=== PATIENT | female | born 1940 | race Hispanic/Latino ===

== ENCOUNTER 2023-10-12 07:03 | Inpatient (IN) | payer SELFPAY ==
[2023-10-12] MEDS ORDERED: methylPREDNISolone Sod Succ/PF 125 MG/2 ML VIAL ONE (07:25)
[2023-10-12] MEDS ORDERED: Magnesium 2 GM/50 ML BAG (IN WATER) ONE (07:26)
[2023-10-12] MEDS ORDERED: Albuterol 2.5 MG (0.5 mL) NEB ONE (07:28)
[2023-10-12 07:31] LABS: Analyzer IN Cardio ER; Base Excess -5.7 mEq/L (-2.0 to +3.0); Calcium, Ionized (venous) 1.16 mmol/L (1.16-1.32); Chloride (VBG) 101 mmol/L (98-106); Hematocrit-VBG 39 % (36.0-47.0); Hemoglobin (Hb) 13.4 g/dL (11.7-16.1); Potassium (VBG) 4.57 mmol/L (3.70-5.30); Sodium 141 mmol/L (133-146)
[2023-10-12 07:37] LABS: #Basophils 0.1 thou/uL (0.0-0.2); #Eosinphils 0.3 thou/uL (0.0-0.7); #Monocytes 0.3 thou/uL (0.11-0.59); #Neutrophils 3.9 thou/uL (1.40-6.50); %Eosinophils 3.9 % (0.0-10.0); %Lymphocytes 35.3 % (21.0-51.0); %Monocytes 4.2 % (0.0-10.0); %Neutrophils 54.1 % (42.0-75.0); Hematocrit 41.9 % (36.0-47.0); Hemoglobin 12.9 g/dL (12.0-16.0); Mean Corpuscular HGB CONC 30.8 g/dL (32.0-36.0); Mean Corpuscular Volume 97.4 fl (78.0-98.0); Mean Platelet Volume 11.5 fL (7.4-10.4); Platelet Count 282 10x3/uL (130-400); RBC Distribution Width 13.4 % (11.5-14.5); White Blood Cell (WBC) Count 7.1 10x3/uL (4.8-10.8)
[2023-10-12 07:37] LABS: pH (venous) 7.133 (7.32-7.43)
[2023-10-12 07:59] LABS: ALT (SGPT) 13 U/L (8-55); AST (SGOT) 20 U/L (5-34); Alkaline Phosphatase 98 U/L (40-110); Anion Gap 17 mmol/L (10-20); BUN (Urea Nitrogen) 48 mg/dL (9.8-20.1); Bilirubin, Total 0.4 mg/dL (0.2-1.2); Calc. Creatinine Clearance 0 mL/min (70-130); Calcium 9.1 mg/dL (7.8-10.44); Carbon Dioxide 23 mmol/L (23-31); Chloride 101 mmol/L (98-107); Estimated GFR 20; Globulin 4.1 g/dL (2.4-3.5); Glucose 317 mg/dL (83-110); Potassium 4.3 mmol/L (3.5-5.1); Protein, Total 8.1 g/dL (5.8-8.1); Sodium 137 mmol/L (136-145)
[2023-10-12 08:09] LABS: Troponin I Less than 0.010 ng/mL (< 0.028)
[2023-10-12 08:15] LABS: INR-International Normal Ratio 1.3; Prothrombin Time 15.8 sec (12.0-14.7)
[2023-10-12 08:16] LABS: PTT 31.7 sec (22.9-36.1)
[2023-10-12] MEDS ORDERED: Nitroglycerin 2% Ointment 1 INCH/1 GM Packet ONE (09:08)
[2023-10-12] MEDS ORDERED: Furosemide 40 MG (4 mL) VIAL ONE (09:09)
[2023-10-12] MEDS ORDERED: Aspirin Chewable 81 MG TAB ONE (09:09)
[2023-10-12] MEDS ORDERED: hydrALAZINE 20 MG/ML VIAL SLOW IVP PRN (09:23)
[2023-10-12] MEDS ORDERED: Senokot S 8.6-50 MG TAB PO PRN (09:23)
[2023-10-12] MEDS ORDERED: Labetalol HCl 100 MG/20 ML VIAL SLOW IVP PRN (09:23)
[2023-10-12] MEDS ORDERED: Sodium Chloride 0.65% Nasal 44 ML BOT EA NARE PRN (09:23)
[2023-10-12] MEDS ORDERED: Ondansetron PF 4 MG/2 ML Vial IVP PRN (09:23)
[2023-10-12] MEDS ORDERED: diphenhydrAMINE 50 MG/ML VIAL IVP PRN (09:23)
[2023-10-12] MEDS ORDERED: diphenhydrAMINE 25 MG CAP PO PRN (09:23)
[2023-10-12] MEDS ORDERED: Calcium Carbonate 500 MG ChewTAB PO PRN (09:23)
[2023-10-12] MEDS ORDERED: Artificial Tear Sol 15 ML BOT EA EYE PRN (09:23)
[2023-10-12] MEDS ORDERED: Bisacodyl 5 MG TAB PO PRN (09:23)
[2023-10-12] MEDS ORDERED: Benzonatate 100 MG CAP PO PRN (09:23)
[2023-10-12] MEDS ORDERED: Nitroglycerin 0.4 MG TAB (25 Tab Bottle) SL PRN (09:23)
[2023-10-12] MEDS ORDERED: Acetaminophen 325 MG TAB PO PRN (09:23)
[2023-10-12] MEDS ORDERED: Acetaminophen 650 MG Suppository PR PRN (09:23)
[2023-10-12] MEDS ORDERED: Moisturizing Cream (Eucerin) 113 GM JAR TOP PRN (09:23)
[2023-10-12] MEDS ORDERED: Loratadine 10 MG TAB PO PRN (09:23)
[2023-10-12] MEDS ORDERED: Ondansetron ODT 4 MG TAB PO PRN (09:23)
[2023-10-12 09:25] LABS: SARS-CoV-2 NAA Rapid Test DETECTED (NotDetected)
[2023-10-12] MEDS ORDERED: Dextrose 5% in Water 1,000 ML IV PRN (09:28)
[2023-10-12] MEDS ORDERED: Dextrose 50% Abboject 50 ML SYRINGE SLOW IVP PRN (09:28)
[2023-10-12] MEDS ORDERED: Glucagon 1 MG/ML KIT IM PRN (09:28)
[2023-10-12] MEDS ORDERED: Empagliflozin 10 MG TAB PO SCH (09:32)
[2023-10-12] MEDS ORDERED: Albuterol 200 PUFF (6.7GM INHALER) INH PRN (10:06)
[2023-10-12 11:16] LABS: Free T4 (Free Thyroxine) 1.31 ng/dL (0.70-1.48); Thyroid Stimulating Hormone 6.3278 uIU/mL (0.35-4.94)
[2023-10-12 11:17] LABS: Lactic Acid 1.6 mmol/L (0.5-2.2)
[2023-10-12 11:19] LABS: Hemoglobin A1c 10.5 % (4.0-6.0)
[2023-10-12 11:30] LABS: Critical Call Chem Troponin I NUR.LM12@1129; Troponin I 0.217 ng/mL (< 0.028)
[2023-10-12 11:31] LABS: ALT (SGPT) 14 U/L (8-55); AST (SGOT) 22 U/L (5-34); Albumin 3.5 g/dL (3.4-4.8); Alkaline Phosphatase 82 U/L (40-110); Bilirubin, Direct 0.1 mg/dL (0.1-0.3); Bilirubin, Total 0.3 mg/dL (0.2-1.2); CRP (Inflammatory) 0.76 mg/dL (= or < 0.5); Magnesium 2.8 mg/dL (1.6-2.6); Phosphorus 4.5 mg/dL (2.3-4.7); Protein, Total 7.3 g/dL (5.8-8.1)
[2023-10-12] MEDS ORDERED: Heparin 10,000 UNITS/ 10 ML VIAL SLOW IVP SCH (12:00)
[2023-10-12] MEDS: Empagliflozin 10 MG TAB PO SCH (13:09)
[2023-10-12] MEDS ORDERED: Heparin 25,000 units/D5W 500 ML ONE (13:12)
[2023-10-12] MEDS: Heparin 25,000 units/D5W 500 ML IVPB SCH (13:21)
[2023-10-12 13:53] LABS: Hematocrit 35.2 % (36.0-47.0); Hemoglobin 11.4 g/dL (12.0-16.0); Platelet Count 226 10x3/uL (130-400)
[2023-10-12 14:21] LABS: Critical Call Chem Troponin I PHA.AAO@1421; Troponin I 0.452 ng/mL (< 0.028)
[2023-10-12 14:38] VITALS: BMI 27.3
[2023-10-12] MEDS: Pantoprazole 40 MG VIAL IVP SCH (15:14)
[2023-10-12] MEDS: REMDESIVIR 200 MG in Sodium Chloride 0.9% 250 ML 210 ML IV SCH (15:14)
[2023-10-12] MEDS: Dexamethasone 10 MG/ML VIAL SLOW IVP SCH (15:14)
[2023-10-12] MEDS: Furosemide 100 MG (10 mL) VIAL SLOW IVP SCH (15:14)
[2023-10-12 15:45] LABS: Bacteria/HPF 2+ HPF (None Seen); Bilirubin Negative (Negative); Blood, Urine Negative (Negative); Clarity Clear (Clear); Glucose, Urine (Dipstick) 500 mg/dL (Negative); Ketone, Urine Negative (Negative); Leukocyte Negative Leu/uL (Negative); Nitrite 2+ (Negative); Protein, Urine (Dipstick) Negative (Neg-Trace); RBC/HPF 0-3 HPF (0-3); Specific Gravity, Urine 1.007 (1.002-1.036); Squamous Epithelial None Seen HPF (0-3); Urobilinogen Normal mg/dL (Less than 2); WBC/HPF 0-3 HPF (0-3)
[2023-10-12 16:28] LABS: Creatinine, Urine Less than 20.00 mg/dL (47-110); Protein, Urine Random Quant Less than 10 mg/dL (1-14)
[2023-10-12] MEDS: HumaLOG 300 UNITS/3 ML VIAL SC PRN ×2 (16:46→22:26)
[2023-10-12 20:28] LABS: PTT Greater than 250.0 sec (22.9-36.1)
[2023-10-12 20:50] LABS: Troponin I 0.554 ng/mL (< 0.028)
[2023-10-12] MEDS ORDERED: Famotidine/PF 20 mg/2ml Vial SLOW IVP SCH (21:00)
[2023-10-12] MEDS ORDERED: Famotidine 20 MG TAB PO SCH (21:00)
[2023-10-12] MEDS ORDERED: Enoxaparin 60 MG (0.6 mL) SYRINGE SC SCH (21:00)
[2023-10-12] MEDS: Amiodarone 200 MG TAB PO SCH (22:02)
[2023-10-13 02:13] LABS: #Monocytes 0.1 thou/uL (0.11-0.59); #Neutrophils 9.1 thou/uL (1.40-6.50); %Basophils 0.1 % (0.0-1.0); %Lymphocytes 4.8 % (21.0-51.0); %Monocytes 1.2 % (0.0-10.0); %Neutrophils 93.4 % (42.0-75.0); Hematocrit 32.2 % (36.0-47.0); Hemoglobin 10.7 g/dL (12.0-16.0); Mean Corpuscular HGB CONC 33.2 g/dL (32.0-36.0); Mean Corpuscular Hemoglobin 30.5 pg (27.0-31.0); Mean Platelet Volume 11.2 fL (7.4-10.4); Platelet Count 216 10x3/uL (130-400); RBC Distribution Width 13.4 % (11.5-14.5); Red Blood Cell (RBC) Count 3.51 mill/uL (4.20-5.40); White Blood Cell (WBC) Count 9.8 10x3/uL (4.8-10.8)
[2023-10-13 02:22] LABS: Mean Corpuscular Volume 91.7 fl (78.0-98.0)
[2023-10-13 02:54] LABS: Critical Call Chem Troponin I REHAB@0253; Troponin I 0.486 ng/mL (< 0.028)
[2023-10-13 03:05] LABS: ALT (SGPT) 13 U/L (8-55); ALT (SGPT) 14 U/L (8-55); AST (SGOT) 20 U/L (5-34); Albumin 3.1 g/dL (3.4-4.8); Albumin 3.2 g/dL (3.4-4.8); Alkaline Phosphatase 63 U/L (40-110); Anion Gap 17 mmol/L (10-20); BUN (Urea Nitrogen) 55 mg/dL (9.8-20.1); Bilirubin, Direct 0.1 mg/dL (0.1-0.3); Bilirubin, Total 0.2 mg/dL (0.2-1.2); Bilirubin, Total 0.3 mg/dL (0.2-1.2); Calc. Creatinine Clearance 17 mL/min (70-130); Calcium 8.7 mg/dL (7.8-10.44); Carbon Dioxide 20 mmol/L (23-31); Chloride 101 mmol/L (98-107); Estimated GFR 18; Globulin 3.7 g/dL (2.4-3.5); Glucose 280 mg/dL (83-110); Potassium 4.1 mmol/L (3.5-5.1); Protein, Total 6.9 g/dL (5.8-8.1); Sodium 134 mmol/L (136-145)
[2023-10-13] MEDS ORDERED: Levothyroxine Sodium 100 MCG TAB PO SCH (06:00)
[2023-10-13 06:55] LABS: PTT 123.4 sec (22.9-36.1)
[2023-10-13] MEDS: Levothyroxine Sodium 112 MCG TAB PO SCH (07:38)
[2023-10-13 09:15] LABS: Critical Call Chem Troponin I 2DECREASING; Troponin I 0.348 ng/mL (< 0.028)
[2023-10-13] MEDS: Zinc Sulfate 220 MG CAP PO SCH (09:44)
[2023-10-13] MEDS: Aspirin Chewable 81 MG TAB PO SCH (09:44)
[2023-10-13] MEDS: Ascorbic Acid 500 mg Chewable Tablet PO SCH (09:45)
[2023-10-13] MEDS: Cholecalciferol (Vitamin D3) 400 UNITS TAB PO SCH (09:45)
[2023-10-13] MEDS: Empagliflozin 10 MG TAB PO SCH (09:45)
[2023-10-13] MEDS: Pantoprazole 40 MG VIAL IVP SCH (09:45)
[2023-10-13] MEDS: FLU VACC QS2023(65UP)/MF59C/PF 60 MCG/0.5 ML SYRINGE IM ONE (09:46)
[2023-10-13] MEDS: Furosemide 100 MG (10 mL) VIAL SLOW IVP SCH (10:01)
[2023-10-13] MEDS: REMDESIVIR 100 MG in Sodium Chloride 0.9% 250 ML 230 ML IV SCH (10:02)
[2023-10-13] MEDS: Apixaban 2.5 MG TAB PO SCH (13:40)
[2023-10-13 14:25] LABS: Troponin I 0.187 ng/mL (< 0.028)
[2023-10-13] MEDS ORDERED: Apixaban 2.5 MG TAB PO SCH (15:00)
[2023-10-13] MEDS: Memantine 10 MG TAB PO SCH (21:06)
[2023-10-13] MEDS: Pioglitazone HCl 15 MG TAB PO SCH (21:06)
[2023-10-13] MEDS: Insulin Glargine 30 UNITS/0.3 ML VIAL SC SCH (21:06)
[2023-10-14 06:44] LABS: #Monocytes 0.5 thou/uL (0.11-0.59); #Neutrophils 12.8 thou/uL (1.40-6.50); %Basophils 0.1 % (0.0-1.0); %Lymphocytes 3.9 % (21.0-51.0); %Monocytes 3.5 % (0.0-10.0); %Neutrophils 91.8 % (42.0-75.0); Hemoglobin 10.6 g/dL (12.0-16.0); Mean Corpuscular HGB CONC 33.1 g/dL (32.0-36.0); Mean Corpuscular Hemoglobin 30.5 pg (27.0-31.0); Mean Corpuscular Volume 92.2 fl (78.0-98.0); Mean Platelet Volume 11.4 fL (7.4-10.4); Platelet Count 199 10x3/uL (130-400); RBC Distribution Width 13.6 % (11.5-14.5); Red Blood Cell (RBC) Count 3.47 mill/uL (4.20-5.40); White Blood Cell (WBC) Count 13.9 10x3/uL (4.8-10.8)
[2023-10-14 07:09] LABS: ALT (SGPT) 9 U/L (8-55); AST (SGOT) 15 U/L (5-34); Albumin 3.3 g/dL (3.4-4.8); Alkaline Phosphatase 66 U/L (40-110); Anion Gap 14 mmol/L (10-20); BUN (Urea Nitrogen) 63 mg/dL (9.8-20.1); Bilirubin, Direct 0.1 mg/dL (0.1-0.3); Bilirubin, Total 0.3 mg/dL (0.2-1.2); Calc. Creatinine Clearance 20 mL/min (70-130); Calcium 8.5 mg/dL (7.8-10.44); Carbon Dioxide 25 mmol/L (23-31); Chloride 99 mmol/L (98-107); Estimated GFR 21; Glucose 237 mg/dL (83-110); Potassium 3.8 mmol/L (3.5-5.1); Protein, Total 6.7 g/dL (5.8-8.1); Sodium 134 mmol/L (136-145)
[2023-10-14] MEDS: Apixaban 2.5 MG TAB PO SCH (17:33)
[2023-10-14] MEDS: Insulin Glargine 30 UNITS/0.3 ML VIAL SC SCH (21:28)
[2023-10-15 07:08] LABS: ALT (SGPT) 12 U/L (8-55); AST (SGOT) 14 U/L (5-34); Albumin 3.1 g/dL (3.4-4.8); Alkaline Phosphatase 58 U/L (40-110); Anion Gap 11 mmol/L (10-20); BUN (Urea Nitrogen) 58 mg/dL (9.8-20.1); Bilirubin, Direct 0.2 mg/dL (0.1-0.3); Bilirubin, Total 0.3 mg/dL (0.2-1.2); Calc. Creatinine Clearance 22 mL/min (70-130); Calcium 8.5 mg/dL (7.8-10.44); Carbon Dioxide 28 mmol/L (23-31); Chloride 103 mmol/L (98-107); Estimated GFR 26; Glucose 164 mg/dL (83-110); Potassium 3.9 mmol/L (3.5-5.1); Protein, Total 6.4 g/dL (5.8-8.1); Sodium 138 mmol/L (136-145)
[2023-10-16 05:56] LABS: #Monocytes 0.5 thou/uL (0.11-0.59); #Neutrophils 7.7 thou/uL (1.40-6.50); %Lymphocytes 4.8 % (21.0-51.0); %Monocytes 5.2 % (0.0-10.0); %Neutrophils 89.2 % (42.0-75.0); Hemoglobin 10.4 g/dL (12.0-16.0); Mean Corpuscular HGB CONC 32.5 g/dL (32.0-36.0); Mean Corpuscular Hemoglobin 30.2 pg (27.0-31.0); Mean Platelet Volume 11.9 fL (7.4-10.4); Platelet Count 177 10x3/uL (130-400); RBC Distribution Width 13.4 % (11.5-14.5); Red Blood Cell (RBC) Count 3.44 mill/uL (4.20-5.40); White Blood Cell (WBC) Count 8.7 10x3/uL (4.8-10.8)
[2023-10-16 06:26] LABS: ALT (SGPT) 12 U/L (8-55); AST (SGOT) 16 U/L (5-34); Albumin 3.2 g/dL (3.4-4.8); Alkaline Phosphatase 60 U/L (40-110); Anion Gap 12 mmol/L (10-20); BUN (Urea Nitrogen) 52 mg/dL (9.8-20.1); Bilirubin, Direct 0.1 mg/dL (0.1-0.3); Bilirubin, Total 0.3 mg/dL (0.2-1.2); Calc. Creatinine Clearance 26 mL/min (70-130); Calcium 8.2 mg/dL (7.8-10.44); Carbon Dioxide 24 mmol/L (23-31); Chloride 107 mmol/L (98-107); Estimated GFR 31; Glucose 95 mg/dL (83-110); Potassium 3.9 mmol/L (3.5-5.1); Protein, Total 6.3 g/dL (5.8-8.1); Sodium 139 mmol/L (136-145)
[2023-10-16] MEDS: Insulin Glargine 30 UNITS/0.3 ML VIAL SC SCH (08:50)
[2023-10-16 17:12] VITALS: BP 166/70; TEMP 97.7
[2023-10-29] MEDS ORDERED: Amiodarone 200 MG TAB PO SCH (09:00)
== END 2023-10-16 17:30 | disposition home or self-care (01) | DRG 177 ==
LOC: ERS 07:03 → EDBD 07:03 → ERHOLD 09:21 → IMCU/EMU 13:54 → 2NO 10-14 13:02
PROVIDERS: ADMIT Family Medicine; ATTEND Internal Medicine
PROC: XW033E5 Introduction of Remdesivir Anti-infective into Peripheral Vein, Percutaneous Approach, New Technology Group 5 (ICD-10-PCS; principal; 2023-10-12)
PROC: 5A09357 Assistance with Respiratory Ventilation, Less than 24 Consecutive Hours, Continuous Positive Airway Pressure (ICD-10-PCS; 2023-10-12)
DX: U07.1 COVID-19 (principal); I21.A1 Myocardial infarction type 2; I50.33 Acute on chronic diastolic (congestive) heart failure; J96.01 Acute respiratory failure with hypoxia; J12.82 Pneumonia due to coronavirus disease 2019; J96.02 Acute respiratory failure with hypercapnia; I13.0 Hypertensive heart and chronic kidney disease with heart failure and stage 1 through stage 4 chronic kidney disease, or unspecified chronic kidney disease; N17.9 Acute kidney failure, unspecified; E11.9 Type 2 diabetes mellitus without complications; E03.9 Hypothyroidism, unspecified; Z96.649 Presence of unspecified artificial hip joint; I48.0 Paroxysmal atrial fibrillation; N18.9 Chronic kidney disease, unspecified; Z79.4 Long term (current) use of insulin; Z79.899 Other long term (current) drug therapy
CPT/HCPCS: 36415; 36416; 71045; 76770; 80048; 80053; 80076; 81001; 82570; 82805; 83036; 83605; 83735; 83880; 84100; 84156; 84439; 84443; 84481; 84484; 85025; 85610; 85730; 86140; 87040; 90471; 90694; 93005; 94644; 94660; 94760; 96374; 96375; C9113; G0008; J0248; J1100; J1644; J1815; J1940; J2930; J3475; J7050; J7611

== ENCOUNTER 2023-11-10 02:50 | Inpatient (IN) | payer MEDICAID, SELFPAY ==
[2023-11-10] MEDS ORDERED: Dexamethasone 10 MG/ML VIAL ONE (02:55)
[2023-11-10] MEDS ORDERED: Magnesium 2 GM/50 ML BAG (IN WATER) ONE (02:56)
[2023-11-10] MEDS ORDERED: Ipratropium/Albuterol 3 ML NEB ONE (03:00)
[2023-11-10 03:08] LABS: Actual Bicarbonate (HCO3a) 19.4 mEq/L (22-28); Analyzer IN Cardio ER; Base Excess (BEa) -7.5 mEq/L (-2.0 to +3.0); CO2 Tension 44.5 mmHg (35.0-45.0); Calcium, Ionized (arterial) 1.19 mmol/L (1.12-1.30); Carboxyhemoglobin (COHb) 0.3 gm% (0.0-3.0); Hematocrit-ABG 35 % (36.0-47.0); Hemoglobin (Hb) 11.8 g/dL (12.0-16.0); O2 Tension (PaO2), arterial 200.3 mmHg (> 60.0); Potassium - ABG Lab 4.23 mmol/L (3.70-5.30); pH, Arterial 7.257 (7.35-7.45)
[2023-11-10 03:09] LABS: Puncture Site RRA
[2023-11-10 03:14] LABS: ALV-art Gradient 457.075 mmHg (0-20)
[2023-11-10 03:16] LABS: #Basophils 0.1 thou/uL (0.0-0.2); #Eosinphils 0.5 thou/uL (0.0-0.7); #Monocytes 0.8 thou/uL (0.11-0.59); #Neutrophils 4.7 thou/uL (1.40-6.50); %Basophils 0.9 % (0.0-1.0); %Eosinophils 5.4 % (0.0-10.0); %Lymphocytes 32.7 % (21.0-51.0); %Monocytes 8.6 % (0.0-10.0); %Neutrophils 51.2 % (42.0-75.0); Hematocrit 36.6 % (36.0-47.0); Hemoglobin 11.4 g/dL (12.0-16.0); Mean Corpuscular HGB CONC 31.1 g/dL (32.0-36.0); Mean Corpuscular Hemoglobin 30.2 pg (27.0-31.0); Mean Corpuscular Volume 96.8 fl (78.0-98.0); Platelet Count 336 10x3/uL (130-400); Red Blood Cell (RBC) Count 3.78 mill/uL (4.20-5.40); White Blood Cell (WBC) Count 9.1 10x3/uL (4.8-10.8)
[2023-11-10 03:30] LABS: INR-International Normal Ratio 1.1; PTT 32.5 sec (22.9-36.1); Prothrombin Time 14.7 sec (12.0-14.7)
[2023-11-10 03:35] LABS: ALT (SGPT) 30 U/L (8-55); AST (SGOT) 44 U/L (5-34); Alkaline Phosphatase 145 U/L (40-110); Anion Gap 17 mmol/L (10-20); BUN (Urea Nitrogen) 51 mg/dL (9.8-20.1); Bilirubin, Total 0.5 mg/dL (0.2-1.2); Calc. Creatinine Clearance 0 mL/min (70-130); Calcium 8.9 mg/dL (7.8-10.44); Carbon Dioxide 21 mmol/L (23-31); Chloride 104 mmol/L (98-107); Estimated GFR 21; Globulin 3.4 g/dL (2.4-3.5); Glucose 291 mg/dL (83-110); Magnesium 2.5 mg/dL (1.6-2.6); Potassium 4.6 mmol/L (3.5-5.1); Protein, Total 7.4 g/dL (5.8-8.1); Sodium 137 mmol/L (136-145)
[2023-11-10 03:38] LABS: Troponin I Less than 0.010 ng/mL (< 0.028)
[2023-11-10] MEDS ORDERED: cefTRIAXone (ROCEPHIN) 1 GM VIAL ONE (04:18)
[2023-11-10] MEDS ORDERED: Furosemide 40 MG (4 mL) VIAL ONE (04:18)
[2023-11-10] MEDS ORDERED: Sodium Chloride 0.9% 100 ML ONE ×2 (04:18→11:59)
[2023-11-10] MEDS ORDERED: Ondansetron ODT 4 MG TAB SL PRN (04:30)
[2023-11-10] MEDS ORDERED: Ondansetron PF 4 MG/2 ML Vial IVP PRN (04:30)
[2023-11-10] MEDS ORDERED: Glucagon 1 MG/ML KIT IM PRN (05:36)
[2023-11-10] MEDS ORDERED: Dextrose 50% Abboject 50 ML SYRINGE SLOW IVP PRN (05:36)
[2023-11-10] MEDS ORDERED: Dextrose 5% in Water 1,000 ML IV PRN (05:36)
[2023-11-10 06:14] LABS: Lactic Acid 1.5 mmol/L (0.5-2.2)
[2023-11-10 06:33] LABS: Troponin I 0.073 ng/mL (< 0.028)
[2023-11-10 07:37] VITALS: BMI 28.7
[2023-11-10] MEDS ORDERED: Azithromycin 500 MG VIAL ONE (07:48)
[2023-11-10] MEDS: Furosemide 20 MG (2 mL) VIAL SLOW IVP SCH (07:52)
[2023-11-10] MEDS: Azithromycin 500 MG in Sodium Chloride 0.9% 250 ML 250 ML IVPB SCH (07:53)
[2023-11-10 09:54] LABS: Troponin I 0.096 ng/mL (< 0.028)
[2023-11-10] MEDS: Cefepime 1 GM in Sodium Chloride 0.9% 100 ML IVPB SCH (11:55)
[2023-11-10] MEDS: Enoxaparin 30 MG (0.3 mL) SYRINGE SC SCH (11:55)
[2023-11-10] MEDS ORDERED: Enoxaparin 30 MG (0.3 mL) SYRINGE ONE (11:59)
[2023-11-10] MEDS ORDERED: Cefepime 1 GM VIAL ONE (11:59)
[2023-11-10] MEDS ORDERED: Albuterol 200 PUFF (6.7GM INHALER) INH PRN (12:50)
[2023-11-10 13:13] LABS: Influenza A by NAA Not Detected (NotDetected); Influenza B by NAA Not Detected (NotDetected); SARS-CoV-2 NAA Rapid Test Not Detected (NotDetected)
[2023-11-10] MEDS ORDERED: Furosemide 20 MG (2 mL) VIAL ONE (13:25)
[2023-11-10] MEDS ORDERED: Insulin Regular 300 UNITS/3 ML VIAL ONE (13:40)
[2023-11-10] MEDS ORDERED: HumaLOG 300 UNITS/3 ML VIAL ONE (13:42)
[2023-11-10] MEDS: HumaLOG 300 UNITS/3 ML VIAL SC PRN (13:45)
[2023-11-10] MEDS: Carvedilol 3.125 MG TAB PO SCH (23:08)
[2023-11-10] MEDS: Memantine 10 MG TAB PO SCH (23:10)
[2023-11-10] MEDS: Apixaban 2.5 MG TAB PO SCH (23:10)
[2023-11-10] MEDS: Pioglitazone HCl 15 MG TAB PO SCH (23:11)
[2023-11-11] MEDS: guaiFENesin ER 600 MG TAB PO SCH ×2 (02:17→21:58)
[2023-11-11 04:47] LABS: Anion Gap 14 mmol/L (10-20); BUN (Urea Nitrogen) 53 mg/dL (9.8-20.1); Calc. Creatinine Clearance 24 mL/min (70-130); Calcium 8.3 mg/dL (7.8-10.44); Carbon Dioxide 24 mmol/L (23-31); Chloride 103 mmol/L (98-107); Estimated GFR 27; Glucose 253 mg/dL (83-110); Potassium 4.4 mmol/L (3.5-5.1); Sodium 137 mmol/L (136-145)
[2023-11-11] MEDS: Levothyroxine Sodium 100 MCG TAB PO SCH (06:21)
[2023-11-11] MEDS: HumaLOG 300 UNITS/3 ML VIAL SC PRN (06:21)
[2023-11-11 08:35] LABS: #Monocytes 0.7 thou/uL (0.11-0.59); #Neutrophils 6.7 thou/uL (1.40-6.50); %Basophils 0.1 % (0.0-1.0); %Lymphocytes 8.5 % (21.0-51.0); %Monocytes 8.3 % (0.0-10.0); %Neutrophils 82.6 % (42.0-75.0); Hemoglobin 8.6 g/dL (12.0-16.0); Mean Corpuscular HGB CONC 31.9 g/dL (32.0-36.0); Mean Corpuscular Hemoglobin 30.4 pg (27.0-31.0); Mean Corpuscular Volume 95.4 fl (78.0-98.0); Mean Platelet Volume 11.5 fL (7.4-10.4); Platelet Count 260 10x3/uL (130-400); RBC Distribution Width 13.8 % (11.5-14.5); Red Blood Cell (RBC) Count 2.83 mill/uL (4.20-5.40); White Blood Cell (WBC) Count 8.1 10x3/uL (4.8-10.8)
[2023-11-11] MEDS: Amiodarone 200 MG TAB PO SCH (09:21)
[2023-11-11 13:56] LABS: Hemoglobin 8.8 g/dL (12.0-16.0)
[2023-11-11 20:49] LABS: Hemoglobin 10.3 g/dL (12.0-16.0)
[2023-11-11] MEDS: Pantoprazole 40 MG VIAL IVP SCH (21:59)
[2023-11-12] MEDS: Melatonin 3 MG TAB PO PRN (02:41)
[2023-11-12] MEDS: hydrOXYzine 25 MG TAB PO SCH (02:41)
[2023-11-12 04:19] LABS: #Basophils 0.1 thou/uL (0.0-0.2); #Eosinphils 0.1 thou/uL (0.0-0.7); #Monocytes 0.5 thou/uL (0.11-0.59); #Neutrophils 4.9 thou/uL (1.40-6.50); %Basophils 0.8 % (0.0-1.0); %Eosinophils 0.9 % (0.0-10.0); %Lymphocytes 13.7 % (21.0-51.0); %Monocytes 7.4 % (0.0-10.0); %Neutrophils 76.1 % (42.0-75.0); Hematocrit 27.1 % (36.0-47.0); Hemoglobin 8.7 g/dL (12.0-16.0); Mean Corpuscular HGB CONC 32.1 g/dL (32.0-36.0); Mean Corpuscular Hemoglobin 30.3 pg (27.0-31.0); Mean Corpuscular Volume 94.4 fl (78.0-98.0); Platelet Count 256 10x3/uL (130-400); RBC Distribution Width 13.9 % (11.5-14.5); Red Blood Cell (RBC) Count 2.87 mill/uL (4.20-5.40); White Blood Cell (WBC) Count 6.5 10x3/uL (4.8-10.8)
[2023-11-12 04:51] LABS: Iron 39 ug/dL (50-170); Iron Binding Capacity, Total 233 mcg/dL (265-497)
[2023-11-12] MEDS: Empagliflozin 10 MG TAB PO SCH (09:02)
[2023-11-12 12:42] LABS: Anion Gap 15 mmol/L (10-20); BUN (Urea Nitrogen) 55 mg/dL (9.8-20.1); Calc. Creatinine Clearance 22 mL/min (70-130); Calcium 8.2 mg/dL (7.8-10.44); Carbon Dioxide 22 mmol/L (23-31); Chloride 103 mmol/L (98-107); Estimated GFR 24; Glucose 201 mg/dL (83-110); Potassium 4.2 mmol/L (3.5-5.1); Sodium 136 mmol/L (136-145)
[2023-11-12] MEDS: Apixaban 2.5 MG TAB PO SCH (21:42)
[2023-11-12] MEDS: hydrALAZINE 25 MG TAB PO SCH (21:42)
[2023-11-12] MEDS: Insulin Glargine 30 UNITS/0.3 ML VIAL SC SCH (21:44)
[2023-11-13] MEDS: hydrOXYzine 25 MG TAB PO SCH (00:43)
[2023-11-13 04:27] LABS: #Basophils 0.1 thou/uL (0.0-0.2); #Eosinphils 0.2 thou/uL (0.0-0.7); #Monocytes 0.7 thou/uL (0.11-0.59); #Neutrophils 3.5 thou/uL (1.40-6.50); %Basophils 1.1 % (0.0-1.0); %Lymphocytes 17.3 % (21.0-51.0); %Neutrophils 64.3 % (42.0-75.0); Hematocrit 29.1 % (36.0-47.0); Hemoglobin 9.1 g/dL (12.0-16.0); Mean Corpuscular HGB CONC 31.3 g/dL (32.0-36.0); Mean Corpuscular Hemoglobin 29.6 pg (27.0-31.0); Mean Corpuscular Volume 94.8 fl (78.0-98.0); Mean Platelet Volume 11.9 fL (7.4-10.4); Platelet Count 253 10x3/uL (130-400); Red Blood Cell (RBC) Count 3.07 mill/uL (4.20-5.40); White Blood Cell (WBC) Count 5.5 10x3/uL (4.8-10.8)
[2023-11-13 04:51] LABS: Anion Gap 13 mmol/L (10-20); BUN (Urea Nitrogen) 49 mg/dL (9.8-20.1); Calc. Creatinine Clearance 23 mL/min (70-130); Calcium 8.5 mg/dL (7.8-10.44); Carbon Dioxide 26 mmol/L (23-31); Chloride 104 mmol/L (98-107); Estimated GFR 25; Glucose 96 mg/dL (83-110); Sodium 139 mmol/L (136-145)
[2023-11-13] MEDS: Cefepime 1 GM in Sodium Chloride 0.9% 100 ML IVPB SCH (08:08)
[2023-11-13] MEDS: Empagliflozin 10 MG TAB PO SCH (08:15)
[2023-11-13] MEDS ORDERED: Empagliflozin 25 MG TAB PO SCH (09:00)
[2023-11-13 10:04] VITALS: TEMP 97.7
[2023-11-13 11:49] VITALS: BP 164/73
== END 2023-11-13 14:29 | disposition home or self-care (01) | DRG 193 ==
LOC: ERS 02:50 → ERHOLD 04:13 → 2NO 14:48
PROVIDERS: ADMIT Hospitalist; ATTEND Internal Medicine
PROC: 4A033R1 Measurement of Arterial Saturation, Peripheral, Percutaneous Approach (ICD-10-PCS; principal; 2023-11-10)
PROC: 5A09357 Assistance with Respiratory Ventilation, Less than 24 Consecutive Hours, Continuous Positive Airway Pressure (ICD-10-PCS; 2023-11-10)
DX: J18.9 Pneumonia, unspecified organism (principal); I50.33 Acute on chronic diastolic (congestive) heart failure; J96.00 Acute respiratory failure, unspecified whether with hypoxia or hypercapnia; I13.0 Hypertensive heart and chronic kidney disease with heart failure and stage 1 through stage 4 chronic kidney disease, or unspecified chronic kidney disease; F03.94 Unspecified dementia, unspecified severity, with anxiety; N17.9 Acute kidney failure, unspecified; N18.4 Chronic kidney disease, stage 4 (severe); E03.9 Hypothyroidism, unspecified; E11.22 Type 2 diabetes mellitus with diabetic chronic kidney disease; I48.0 Paroxysmal atrial fibrillation; N18.9 Chronic kidney disease, unspecified; Z79.899 Other long term (current) drug therapy; Z79.890 Hormone replacement therapy
CPT/HCPCS: 36415; 36416; 36600; 71045; 74176; 80048; 80053; 82274; 82728; 82805; 83540; 83550; 83605; 83735; 83880; 84443; 84484; 85025; 85610; 85730; 87040; 93005; 93798; 94660; 94760; 96365; 96367; 96375; C9113; J0456; J0692; J0696; J1100; J1650; J1815; J1940; J3475; J3490; J7050; J7620